=== PATIENT | male | born 1945 | race Caucasian/White ===

== ENCOUNTER 2017-04-24 13:41 | Outpatient (CLI) | payer MEDICARE, BC ==
[2017-04-24 16:10] LABS: Hematocrit 39.5 % (42.0-52.0); Mean Platelet Volume 8.2 fL (7.4-10.4); Red Blood Cell (RBC) Count 3.95 mill/uL (4.70-6.10); White Blood Cell (WBC) Count 9.4 thou/uL (4.8-10.8)
[2017-04-24 16:17] LABS: Prothrombin Time 13.6 SEC (12.0-14.7)
--- NOTE | 2017-04-24 16:24 | RAD ---
CHEST TWO VIEWS: History: Pre op. Comparison: 03-14-17 FINDINGS: Lungs are clear. No pneumothorax or effusion. Cardiac silhouette and mediastinal contours are within normal limits. IMPRESSION: No acute cardiopulmonary process. POS: [facility]
[2017-04-24 16:27] LABS: ALT (SGPT) 9 U/L (8-55); AST (SGOT) 17 U/L (5-34); Alkaline Phosphatase 71 U/L (40-150); Anion Gap 13 mmol/L (10-20); BUN (Urea Nitrogen) 16 mg/dL (8.4-25.7); Bilirubin, Total 0.4 mg/dL (0.2-1.2); Calc. Creatinine Clearance 0 mL/min (70-130); Calcium 9.4 mg/dL (7.8-10.44); Carbon Dioxide 27 mmol/L (23-31); Chloride 106 mmol/L (98-107); Estimated GFR-MDRD 46; Globulin 3.1 g/dL (2.4-3.5); Protein, Total 7.2 g/dL (5.8-8.1)
== END 2017-04-24 13:42 | disposition home or self-care (01) ==
LOC: LABBT 13:41
PROVIDERS: ATTEND Internal Medicine Cardiovascular Disease
DX: Z01.818 Encounter for other preprocedural examination (principal); R94.39 Abnormal result of other cardiovascular function study
CPT/HCPCS: 71020; 80053; 84443; 85027; 85610; 85730; 93005; 93010

== ENCOUNTER 2017-04-25 06:01 | Inpatient (IN) | payer MEDICARE, BC ==
[2017-04-25] MEDS ORDERED: Heparin 10,000 UNITS/1 ML VIAL ONE (06:36)
[2017-04-25] MEDS ORDERED: Nitroglycerin 0.4 MG TAB (25 Tab Bottle) ONE (06:38)
[2017-04-25] MEDS ORDERED: Midazolam HCl 2 mg/2 ml Vial ONE (07:11)
[2017-04-25] MEDS ORDERED: Fentanyl 100 MCG/2 ML VIAL ONE (07:11)
[2017-04-25] MEDS ORDERED: Nitroglycerin 0.4 MG TAB (25 Tab Bottle) SL PRN (07:27)
[2017-04-25] MEDS ORDERED: Acetaminophen/Codeine 30-300mg Tablet PO PRN ×2 (07:27)
[2017-04-25] MEDS ORDERED: Protamine Sulfate 50 MG/5 ML VIAL ONE (07:28)
[2017-04-25] MEDS ORDERED: Sodium Chloride 0.9% 1,000 ML IV SCH (07:30)
[2017-04-25] MEDS ORDERED: Sodium Chloride 0.9% 200 ML IV SCH (07:30)
--- NOTE | 2017-04-25 09:52 | CON ---
DATE OF CONSULTATION: 04/25/2017 REASON FOR CONSULTATION: Evaluation for coronary artery bypass surgery. PERTINENT HISTORY: Patient is a 72-year-old male with recent history of exertional shortness of breath and postprandial indigestion that likely represents postprandial angina. Patient has no prior documented history of OR. Cardiac PET was markedly abnormal prompting cardiac catheterization today, which demonstrated severe 3-vessel coronary artery disease with moderate reduction in left ventricular systolic function. Ejection fraction was 43%. LVEDP was 22. The patient was subsequently referred for coronary artery bypass surgery. PAST MEDICAL HISTORY: 1. Dyslipidemia. 2. Hypothyroidism. 3. Hypertension. 4. Renal insufficiency. 5. Carotid artery disease with abnormal carotid sono at the [facility] in [place], February this year (details unknown) PAST SURGICAL HISTORY: Sinus surgery only. ALLERGIES: PENICILLIN. SOCIAL HISTORY: Long-term cigarette and cigar smoker, having quit approximately 6 weeks ago. FAMILY HISTORY: Noncontributory for coronary artery disease. REVIEW OF SYSTEMS: No history of diabetes, TIA, CVA, or claudication. LABORATORY DATA AND X-RAY FINDINGS: Creatinine 1.50. Hemoglobin 13.5, platelet count 192,000. INR 1.0. EKG demonstrates a right bundle branch block. Chest x-ray, 6 weeks ago, demonstrated no acute process. CURRENT MEDICATIONS: Aspirin 81 mg daily, Synthroid 150 mcg daily, Toprol-XL 25 mg daily, and Crestor 20 mg daily. PHYSICAL EXAMINATION: VITAL SIGNS: Height 5 feet 10 inches, weight 180 pounds, blood pressure 136/78 , heart rate 58. GENERAL: Well-developed, well-nourished male in no acute distress. He is fully oriented. HEENT: Grossly unremarkable. NECK: Without JVD or adenopathy. LUNGS: Clear anteriorly. HEART: Sinus bradycardia without murmur or rub. ABDOMEN: Soft and nontender, without palpable mass. EXTREMITIES: Without edema. VASCULAR: Palpable radial, femoral, popliteal pulses bilaterally. He does have a left carotid bruit. Abdominal aorta is nonpalpable. NEUROLOGIC: No focal deficits. IMPRESSION: Poor prognostic stress test, severe 3-vessel coronary artery disease, and moderate reduction in left ventricular systolic function. RECOMMENDATIONS: Coronary artery bypass surgery to which the patient is in agreement following discussion with his referring international logistics analyst and myself. The indications, benefits, alternatives, and risks were explained in detail to the patient and his and sister. All questions were answered. Carotid ultrasound will be obtained immediately with any further recommendations based on the results of the study. [facility]
[2017-04-25] MEDS ORDERED: Iopamidol 370 76% 100 ML VIAL ONE (11:55)
--- NOTE | 2017-04-25 11:56 | ULT ---
CAROTID DUPLEX ULTRASOUND: HISTORY: Carotid stenosis. TECHNIQUE: Castaneda scale ultrasound with color flow and spectral Doppler imaging of the extracranial carotid arter y systems performed bilaterally. FINDINGS: There is plaque formation on both sides. There is occlusive plaque without flow in the right mid an d distal ICA. The peak systolic velocity in the left ICA measures 134 cm/s with an end-diastolic velocity of 34 cm /s and a systolic ratio of 1.53. Flow in both vertebral arteries remains antegrade. IMPRESSION: 1. Occlusion of the right internal carotid artery. 2. Moderate (50-69%) stenosis involving the left internal carotid artery. POS: [facility]
[2017-04-25] MEDS ORDERED: Communication Order-Pharmacy FS SCH (13:50)
[2017-04-25] MEDS: Nitroglycerin 2% Ointment 1 INCH/1 GM Packet TOP SCH ×2 (13:53→20:40)
[2017-04-25] MEDS: Aspirin 81 mg Enteric Coated Tablet PO SCH (13:54)
[2017-04-25] MEDS: Ubidecarenone 50 MG CAP PO SCH (13:54)
[2017-04-25 19:22] VITALS: BMI 25.0
[2017-04-25] MEDS ORDERED: FLU VACC TS2017-18 (>65YR) 0.5 ML SYRINGE IM ONE (21:00)
[2017-04-26] MEDS: Levothyroxine Sodium 150 MCG TAB PO SCH (05:48)
[2017-04-26] MEDS: Nitroglycerin 2% Ointment 1 INCH/1 GM Packet TOP SCH (05:52)
[2017-04-26] MEDS ORDERED: Fentanyl 100 MCG/2 ML VIAL ONE (06:33)
[2017-04-26] MEDS ORDERED: Dexmedetomidine 200 MCG/2 ML VIAL ONE (06:34)
[2017-04-26] MEDS ORDERED: Midazolam HCl 5 mg/5 ml Vial ONE (06:34)
[2017-04-26] MEDS ORDERED: Vecuronium 10 MG VIAL ONE ×2 (06:34→07:59)
[2017-04-26] MEDS ORDERED: Heparin 10,000 UNITS/1 ML VIAL 30,000 UNITS in Sodium Chloride 0.9% 1,000 ML FS SCH (06:45)
[2017-04-26] MEDS ORDERED: Clindamycin/D5W 900 mg/50 ml Premix Bag ONE (06:47)
[2017-04-26] MEDS ORDERED: Levofloxacin 500 mg/D5W 100 ml Premix Bag ONE (06:47)
[2017-04-26] MEDS ORDERED: Clindamycin/D5W 900 MG in Premix Bag 1 BAG IVPB SCH (07:30)
[2017-04-26] MEDS ORDERED: Lidocaine 2% PF 10 ML AMP (For Epidural Use) ONE (07:59)
[2017-04-26] MEDS ORDERED: PHENYLEPHRINE-NS 100 MCG/ML 10 ML SYRINGE ONE (07:59)
[2017-04-26] MEDS ORDERED: ePHEDrine/0.9% NaCl/PF SYRINGE 50 mg/10 ml ONE (07:59)
[2017-04-26] MEDS ORDERED: Insulin Regular 300 UNITS/3 ML VIAL ONE (09:38)
[2017-04-26] MEDS ORDERED: DOPamine 400 MG/D5W 250 ML 250 ML IVPB PRN (12:12)
[2017-04-26] MEDS ORDERED: Bisacodyl 5 MG TAB PO PRN (12:12)
[2017-04-26] MEDS ORDERED: Ondansetron HCl/PF 4 MG/2 ML Vial IVP PRN (12:12)
[2017-04-26] MEDS ORDERED: Mag-Al 1200 mg/1200 mg/30 ML UDCUP PO PRN (12:12)
[2017-04-26] MEDS ORDERED: Promethazine HCl 25 MG/ML VIAL IM PRN (12:12)
[2017-04-26] MEDS ORDERED: Norepinephrine 8 MG/0.9% NS 250 ML IVPB PRN (12:12)
[2017-04-26] MEDS ORDERED: Potassium Chloride 20 MEQ/100 ML PREMIX BAG IVPB PRN (12:12)
[2017-04-26] MEDS ORDERED: Bisacodyl 10 MG SUPP PR PRN (12:12)
[2017-04-26] MEDS ORDERED: Guaifenesin DM 100-10/5 ML UDCUP PO PRN (12:12)
[2017-04-26] MEDS ORDERED: Acetaminophen 325 MG TAB PO PRN (12:12)
[2017-04-26] MEDS ORDERED: Morphine Sulfate 2 MG/ML SYRINGE SLOW IVP PRN (12:12)
[2017-04-26] MEDS ORDERED: Post-Op Insulin Drip Protocol IVPB PRN (12:12)
[2017-04-26] MEDS ORDERED: HYDROcodone/Acetaminophen 5/325 mg Tablet PO PRN (12:12)
[2017-04-26] MEDS ORDERED: Phenylephrine 10 MG/NS 250 ML 250 ML IVPB PRN (12:12)
[2017-04-26] MEDS ORDERED: Nitroglycerin 50 MG/250 ML BOT 250 ML IVPB PRN (12:12)
[2017-04-26] MEDS ORDERED: DOPamine 400 MG/D5W 250 ML 250 ML ONE (12:18)
[2017-04-26 12:19] LABS: Oxyhemoglobin 96.3 % (94.0-97.0); Sodium 143 mmol/L (135-148)
[2017-04-26] MEDS ORDERED: Dextrose 50% Abboject 50 ML SYRINGE SLOW IVP PRN (12:21)
[2017-04-26] MEDS ORDERED: Insulin Regular 300 UNITS/3 ML VIAL SC PRN (12:21)
[2017-04-26] MEDS ORDERED: Dextrose 5% in Water 1,000 ML IV PRN (12:21)
[2017-04-26 12:22] LABS: #Basophils 0.1 thou/uL (0.0-0.2); #Eosinphils 0.1 thou/uL (0.0-0.7); #Lymphocytes 2.5 thou/uL (1.20-3.40); #Monocytes 1.2 thou/uL (0.11-0.59); #Neutrophils 15.2 thou/uL (1.40-6.50); %Basophils 0.5 % (0.0-1.0); %Eosinophils 0.8 % (0.0-10.0); %Lymphocytes 12.8 % (21.0-51.0); %Monocytes 6.5 % (0.0-10.0); Mean Platelet Volume 7.4 fL (7.4-10.4); Red Blood Cell (RBC) Count 3.61 mill/uL (4.70-6.10); White Blood Cell (WBC) Count 19.2 thou/uL (4.8-10.8)
[2017-04-26] MEDS: Sodium Chloride 0.9% 1,000 ML IV SCH (12:26)
[2017-04-26] MEDS: Ubidecarenone 50 MG CAP PO SCH (12:26)
[2017-04-26 12:29] LABS: PTT 33.1 SEC (22.9-36.1)
--- NOTE | 2017-04-26 12:30 | OP ---
DATE OF SURGERY: 04/26/2017 PREOPERATIVE DIAGNOSES: Poor prognostic stress test, severe three-vessel coronary artery disease, and moderate reduction in left ventricular systolic function. POSTOPERATIVE DIAGNOSES: Poor prognostic stress test, severe three-vessel coronary artery disease, and moderate reduction in left ventricular systolic function. SPONGE AND NEEDLE COUNTS: Correct. ANESTHESIA: General. OPERATIONS PERFORMED: Coronary artery bypass grafting x5 with left internal mammary artery to LAD, reversed greater saphenous vein to diagonal, reversed greater saphenous vein to ramus, reversed greater saphenous vein to OM, and reversed greater saphenous vein to PLMB. FINDINGS AT OPERATION: Moderate cardiomegaly and LVH. Patchy inferior scar. At the sites of distal anastomosis the LAD was 1.5mm, the diagonal 1-1.25 mm, the ramus 1.5 mm, the OM 1.5 mm, and the PLMB 1.25-1.5 mm. Left internal mammary artery was somewhat small, however, had excellent flow. Greater saphenous vein was good conduit. DESCRIPTION OF OPERATION: The patient was taken to the operating room. Following the induction of general endotracheal anesthesia, the patient was prepped and draped in usual sterile fashion. Sternotomy was performed. Left internal mammary artery was dissected in extrapleural fashion. Simultaneously, the left greater saphenous vein was harvested using the endoscopic technique. Heparin dose was given and following assurance of an adequate ACT, the patient was cannulated in standard fashion. Cardiopulmonary bypass was instituted. Locations of distal anastomosis were marked. Padded cross-clamp was applied with a single application and a single dose of cold blood cardioplegia given antegrade. The first vein graft was anastomosed in end-to-side fashion to the OM using a continuous 7-0 Prolene suture. In similar fashion, separate vein grafts were established to the ramus, diagonal, and PLMB. Left internal mammary artery was anastomosed in end-to-side fashion to the LAD using a continuous 7-0 Prolene suture. None of the distal anastomoses required additional sutures. Mammary artery pedicle was tacked to the epicardium using 6 -0 Prolene sutures. Systemic rewarming had been begun. With the head down and gentle suction on the aortic vent, the aortic cross-clamp was removed. Cardioversion was not required. Partial clamp was placed on the ascending aorta with a single application and 3 proximal vein graft anastomoses performed to punch holes using continuous 6-0 Prolene sutures. These were to the PLMB, ramus, and diagonal grafts. The PLMB graft did exit off to the right. The proximal OM graft anastomosis was t'd off the proximal aspect of the ramus graft using a continuous 6-0 Prolene suture. Partial clamp was removed and vein grafts deaired. Following full systemic rewarming, patient was weaned from cardiopulmonary bypass without difficulty and following heparin reversal with Protamine, the patient was decannulated. Amicar had been used in standard fashion through the case. No intraoperative blood products were required. Sunny drains were positioned within the pericardial well and left pleural cavity. Sternum was reapproximated with interrupted #5 stainless steel wires. Linea alba and fascia were closed with running #1 Vicryl sutures followed by closure of the subcutaneous tissues with a running 2-0 Vicryl suture. Skin was closed with a 3-0 Vicryl subcuticular stitch. Prior to closure, vancomycin paste had been applied to the sternal halves. Platelet-enriched and platelet- poor plasma had also been applied to the sternal wound. The patient was taken to the ICU. [facility]
[2017-04-26] MEDS: Aspirin 81 mg Enteric Coated Tablet PO SCH (12:33)
[2017-04-26 12:40] LABS: Mechanical Tidal Volume 500 ml; Mode SIMV; Pressure Support 10 cmH2O; Vent YES
[2017-04-26 12:44] LABS: Anion Gap 9 mmol/L (10-20); BUN (Urea Nitrogen) 12 mg/dL (8.4-25.7); Calc. Creatinine Clearance 75 mL/min (70-130); Calcium 8.3 mg/dL (7.8-10.44); Carbon Dioxide 23 mmol/L (23-31); Chloride 113 mmol/L (98-107); Estimated GFR-MDRD 71
[2017-04-26] MEDS: Fentanyl 100 MCG/2 ML VIAL SLOW IVP PRN ×4 (13:13→20:11)
[2017-04-26] MEDS: Clindamycin/D5W 900 MG in Premix Bag 1 BAG IVPB SCH ×2 (13:15→20:11)
--- NOTE | 2017-04-26 13:21 | RAD ---
PORTABLE CHEST: Comparison: 04-24-17 History: Post op open heart surgery. FINDINGS: Heart size is borderline. There is post op sternotomy changes now present. Endotracheal and NG tubes are in satisfactory position. Right subclavian line is present. Catheter tip overlying the distal s uperior vena cava. Atelectatic changes are seen in the left base. Left sided chest tubes are present. IMPRESSION: Post op open heart surgery changes as noted above. POS: [facility]
[2017-04-26 16:08] LABS: Sodium 142 mmol/L (135-148)
[2017-04-26 16:27] LABS: Mode CPAP; Pressure Support 10 cmH2O; Vent YES
[2017-04-26] MEDS: HYDROcodone/Acetaminophen 5/325 mg Tablet PO PRN ×2 (16:55→21:46)
[2017-04-26 18:10] LABS: Hematocrit 33.6 % (42.0-52.0)
[2017-04-26] MEDS: Famotidine/PF 20 mg/2ml Vial SLOW IVP SCH (20:11)
[2017-04-27] MEDS: Clindamycin/D5W 900 MG in Premix Bag 1 BAG IVPB SCH ×2 (00:11→06:02)
[2017-04-27] MEDS: HYDROcodone/Acetaminophen 5/325 mg Tablet PO PRN ×3 (02:05→18:53)
[2017-04-27] MEDS: Fentanyl 100 MCG/2 ML VIAL SLOW IVP PRN (03:14)
[2017-04-27 04:26] LABS: #Lymphocytes 1.5 thou/uL (1.20-3.40); #Monocytes 1.1 thou/uL (0.11-0.59); #Neutrophils 10.8 thou/uL (1.40-6.50); %Eosinophils 0.1 % (0.0-10.0); %Monocytes 7.9 % (0.0-10.0); Hematocrit 29.8 % (42.0-52.0); Mean Platelet Volume 8.4 fL (7.4-10.4); Red Blood Cell (RBC) Count 2.98 mill/uL (4.70-6.10); White Blood Cell (WBC) Count 13.3 thou/uL (4.8-10.8)
[2017-04-27 04:51] LABS: Anion Gap 12 mmol/L (10-20); BUN (Urea Nitrogen) 16 mg/dL (8.4-25.7); Calc. Creatinine Clearance 62 mL/min (70-130); Calcium 8.6 mg/dL (7.8-10.44); Carbon Dioxide 24 mmol/L (23-31); Chloride 110 mmol/L (98-107); Estimated GFR-MDRD 57
[2017-04-27] MEDS: Levothyroxine Sodium 150 MCG TAB PO SCH (05:05)
--- NOTE | 2017-04-27 08:54 | RAD ---
AP VIEW CHEST: INDICATIONS: Status post open heart surgery. COMPARISON: Prior exam dated 04/26/2017. IMPRESSION: Since the comparison examination, the patient has been extubated with removal of the gastric cathete r. Mediastinal drain, thoracostomy tube, and right subclavian central venous catheter is similar. No pneumothorax is evident. The cardiac silhouette is accentuated by the exam technique and low jacob g volumes. No definite confluent air space opacity, pleural effusion, or pneumothorax is evident. IMPRESSION: 1. Interval extubation. Other tubes and lines are stable. 2. No air space consolidation, pleural effusion, or pneumothorax is evident. POS: [facility]
[2017-04-27] MEDS ORDERED: Aspirin 325 MG TAB PO SCH (09:00)
[2017-04-27] MEDS: Famotidine/PF 20 mg/2ml Vial SLOW IVP SCH (09:16)
[2017-04-27] MEDS: Ubidecarenone 50 MG CAP PO SCH (09:17)
[2017-04-27] MEDS ORDERED: Bisacodyl 10 MG SUPP PR PRN (12:20)
[2017-04-27] MEDS ORDERED: Zolpidem Tartrate 5 MG TAB PO PRN (12:20)
[2017-04-27] MEDS ORDERED: Fentanyl 100 MCG/2 ML VIAL SLOW IVP PRN ×2 (12:20)
[2017-04-27] MEDS ORDERED: Bisacodyl 5 MG TAB PO PRN (12:20)
[2017-04-27] MEDS ORDERED: Promethazine HCl 25 MG/ML VIAL IM PRN (12:20)
[2017-04-27] MEDS ORDERED: Ondansetron HCl/PF 4 MG/2 ML Vial IVP PRN (12:20)
[2017-04-27] MEDS ORDERED: Mineral Oil ENEMA PR PRN (12:20)
[2017-04-27] MEDS ORDERED: Milk Of Magnesia 30 ML UDCUP PO PRN (12:20)
[2017-04-27] MEDS ORDERED: Nitroglycerin 0.4 MG TAB 1 EACH SL PRN (12:20)
[2017-04-27] MEDS ORDERED: Mag-Al 1200 mg/1200 mg/30 ML UDCUP PO PRN (12:20)
[2017-04-27] MEDS ORDERED: Acetaminophen 325 MG TAB PO PRN (12:20)
[2017-04-27] MEDS ORDERED: Artificial Tears 18 DROP/0.9 ML EA EYE PRN (12:20)
[2017-04-27] MEDS ORDERED: Guaifenesin DM 100-10/5 ML UDCUP PO PRN (12:20)
[2017-04-27] MEDS ORDERED: diphenhydrAMINE HCl 25 MG CAP PO PRN (12:20)
--- NOTE | 2017-04-27 12:38 | CON ---
DATE OF SERVICE: 04/27/2017 SERVICE: Pulmonary Medicine. REASON FOR CONSULTATION: ICU patient. HISTORY OF PRESENT ILLNESS: The patient is a 72-year-old white male with past medical history signi ficant for severe coronary artery disease. He had an outpatient catheterization that was performed, prompting admission to the hospital and an urgent coronary artery bypass graft. He is postop day # 1. So far, his transition has been fairly uncomplicated. He extubated well and is currently on darell m air. He continues to have discomfort; whenever, he takes a deep breath which preventing him from taking a full breath. When he got up to a chair this morning, he had marginal blood pressures. He had a little dizziness associated with this and was brought back to bed. He currently denies any fe vers, chills, nausea or vomiting. He does not have any complaints of difficulty with breathing. PAST MEDICAL HISTORY: 1. Coronary artery disease. 2. Hypertension. 3. Dyslipidemia. 4. Chronic kidney disease. 5. Hypothyroidism. 6. Carotid arterial disease. PAST SURGICAL HISTORY: 1. Sinus surgery. 2. Coronary artery bypass graft x5 vessels. ALLERGIES: PENICILLIN. MEDICATIONS: Listed inpatient medications was reviewed. No specific updates were made at this time . SOCIAL HISTORY: He has a long history of smoking cigarettes. He quit roughly 6 weeks ago. He does not use any significant alcohol and denies illicit drugs. Otherwise, he has no exposure to chemica ls, dust asbestosis or tuberculosis. FAMILY HISTORY: Noncontributory. REVIEW OF SYSTEMS: General, head, ears, eyes, nose, throat, cardiovascular, respiratory, GI, , mu sculoskeletal, neurologic and skin is negative except as mentioned in the HPI. PHYSICAL EXAMINATION: VITAL SIGNS: Afebrile, pulse 86, blood pressure 100/58, respirations 22, saturation 93% on room air . The patient is awake, alert, in no apparent distress. LUNGS: Decent air entry with no prolonged expiratory phase, wheezing, rhonchi or crackles. HEART: Normal rate, regular. ABDOMEN: Soft, nontender, nondistended, bowel sounds positive. MUSCULOSKELETAL: No cyanosis or clubbing. There is trace pitting in the bilateral lower extremitie s. GENITOURINARY: Ferreira catheter in place. LABORATORY DATA: WBC 13.3, hemoglobin 10.9, platelets 130,000. INR 1.4. PH 7.35, pCO2 of 39, pO2 86. Basic metabolic profile is essentially unremarkable except for chloride of 110. TSH is 5.5. L iver function studies are all unremarkable. Urinalysis was previously unremarkable. IMAGING: Chest x-ray demonstrates no acute cardiopulmonary abnormality is identified. Thoracostomy drain cannot be visualized on this portable film. The heart size is within the normal limits. . S ternotomy wires are in good position. There is a right-sided subclavian central venous catheter in the right atrium. ASSESSMENT AND PLAN: 1. Coronary artery disease. 2. Coronary artery bypass graft x5 vessels, postoperative day #1. 3. Chronic systolic heart failure. PLAN: We will continue routine postop supportive care. The patient will remain in the ICU for at l east the next 24 hours. Pulmonary Critical Care will continue to follow along for the time being. We will watch his volume status closely.
[2017-04-27] MEDS: traMADol HCl 50 MG TAB PO PRN (15:17)
[2017-04-27] MEDS: Sodium Chloride 0.9% 1,000 ML IV SCH (18:06)
[2017-04-27] MEDS: Carvedilol 3.125 MG TAB PO SCH (21:00)
[2017-04-27] MEDS: Famotidine 20 MG TAB PO SCH (21:00)
[2017-04-28] MEDS: HYDROcodone/Acetaminophen 5/325 mg Tablet PO PRN ×2 (02:05→17:45)
[2017-04-28] MEDS: Levothyroxine Sodium 150 MCG TAB PO SCH (05:59)
[2017-04-28 06:41] LABS: Anion Gap 8 mmol/L (10-20); BUN (Urea Nitrogen) 15 mg/dL (8.4-25.7); Calc. Creatinine Clearance 60 mL/min (70-130); Calcium 8.8 mg/dL (7.8-10.44); Carbon Dioxide 27 mmol/L (23-31); Chloride 105 mmol/L (98-107); Estimated GFR-MDRD 63
[2017-04-28] MEDS: Potassium Chloride 10 MEQ TAB PO SCH (08:45)
[2017-04-28] MEDS: Ubidecarenone 50 MG CAP PO SCH (09:04)
[2017-04-28] MEDS: Famotidine 20 MG TAB PO SCH ×2 (09:04→20:50)
[2017-04-28] MEDS: Carvedilol 3.125 MG TAB PO SCH ×2 (09:04→20:43)
[2017-04-28] MEDS: Aspirin 325 mg Enteric Coated Tablet PO SCH (09:05)
[2017-04-28] MEDS: Furosemide 40 MG TAB PO SCH (09:07)
--- NOTE | 2017-04-28 18:07 | PRG ---
DATE OF SERVICE: 04/28/2017 SERVICE: Pulmonary Medicine. INTERVAL HISTORY: The patient is doing okay from a respiratory standpoint. That being said, johnny guallpa, he had little hypoxemia prompting him to be put on oxygen. He has had a little bit of heart ra te issue. That being said, this has been present through the day. He denies having any discomfort or difficulty breathing. That being said, he has got this internal restlessness where he continues to move inside of the bed. He looks like he has got mild distress though he cannot tell me what it is. Chest tube was removed. He has no specific complaints of nausea, vomiting. He has been able t o eat some food. PHYSICAL EXAMINATION: VITAL SIGNS: Afebrile, pulse 98, blood pressure 92/57, respirations 16, saturation 93% on 3 liters nasal cannula. GENERAL: Patient is awake, alert, in no apparent distress. LUNGS: Decreased air entry. There are minimal crackles present in bibasilar region and I appreciat e a slightly prolonged expiratory phase. HEART: Tachycardic, regular. ABDOMEN: Soft, nontender, nondistended. Bowel sounds positive. MUSCULOSKELETAL: No cyanosis or clubbing. There is trace 1+ pitting in the bilateral lower extremi ties. GENITOURINARY: No Ferreira. NEUROLOGIC: Grossly nonfocal. LABORATORY DATA: Basic metabolic profile is essentially unremarkable with a creatinine that is tren ding downward to 1.14. ASSESSMENT: 1. Coronary artery disease. 2. Coronary artery bypass graft x5 vessels, postop day 2. 3. Chronic systolic heart failure. PLAN: We will continue routine postoperative care. Mobilization efforts will be continued as we ge ntly diuresed him through time. Pulmonary will continue to follow up for the time being.
[2017-04-28] MEDS: traMADol HCl 50 MG TAB PO PRN (20:50)
[2017-04-29 02:52] VITALS: TEMP 98.3
[2017-04-29] MEDS: HYDROcodone/Acetaminophen 5/325 mg Tablet PO PRN ×2 (02:52→11:18)
[2017-04-29] MEDS: Levothyroxine Sodium 150 MCG TAB PO SCH (06:07)
[2017-04-29] MEDS: traMADol HCl 50 MG TAB PO PRN (06:12)
[2017-04-29] MEDS: Ubidecarenone 50 MG CAP PO SCH (08:52)
[2017-04-29] MEDS: Furosemide 40 MG TAB PO SCH (08:52)
[2017-04-29] MEDS: Potassium Chloride 10 MEQ TAB PO SCH (08:52)
[2017-04-29] MEDS: Carvedilol 3.125 MG TAB PO SCH (08:53)
[2017-04-29] MEDS: Aspirin 325 mg Enteric Coated Tablet PO SCH (08:53)
[2017-04-29] MEDS: Famotidine 20 MG TAB PO SCH (08:53)
[2017-04-29 13:16] VITALS: BP 119/73
--- NOTE | 2017-04-29 19:49 | DIS ---
DATE OF ADMISSION: 04/24/2017 DATE OF DISCHARGE: 04/28/2017 DIAGNOSES: 1. Coronary artery disease. 2. Hypothyroidism. 3. Dyslipidemia. 4. Hypertension. 5. Renal insufficiency. 6. Carotid disease. 7. Tobacco abuse. PROCEDURES: 1. Cardiac catheterization. 2. Coronary artery bypass grafting x5 - left internal mammary artery LAD, reversed saphenous vein t o diagonal, ramus, OM posterolateral. DESCRIPTION OF HOSPITAL STAY: Mr. Rincon is a 72-year-old gentleman, who was admitted and underwent cardiac catheterization by Dr. Romo. He was found to have severe 3-vessel disease. He was take n to the operating room on 04/25/2017, and underwent bypass as above. Postoperatively, he has done well. He has had no rhythm disturbances. He was found in the morning of 04/29/2017, chewing tobacc o in his room and has subsequently been discharged to home. At the time of discharge, he is ambulat ory, tolerating regular diet, and having good bowel and bladder function. The incision is clean and dry without evidence of infection. DISCHARGE MEDICATIONS: Include; 1. Aspirin 325 mg q. day. 2. Toprol-XL 25 mg q. day. 3. Crestor 20 mg q. day. 4. [place] 5/325 of 1-2 q.6 hours p.r.n. pain. FOLLOWUP: Follow up is with Dr. Gonzales in [address] Romo in a month.
== END 2017-04-29 13:51 | disposition home or self-care (01) | DRG 234 ==
LOC: CCL 06:01 → 2NO 07:28 → CCU 04-26 08:22 → 2NO 04-27 14:45
PROVIDERS: ADMIT Internal Medicine Cardiovascular Disease; ATTEND Internal Medicine Cardiovascular Disease
PROC: 4A023N7 Measurement of Cardiac Sampling and Pressure, Left Heart, Percutaneous Approach (ICD-10-PCS; 2017-04-25)
PROC: B2111ZZ Fluoroscopy of Multiple Coronary Arteries using Low Osmolar Contrast (ICD-10-PCS; 2017-04-25)
PROC: B2151ZZ Fluoroscopy of Left Heart using Low Osmolar Contrast (ICD-10-PCS; 2017-04-25)
PROC: 02100Z9 Bypass Coronary Artery, One Artery from Left Internal Mammary, Open Approach (ICD-10-PCS; principal; 2017-04-26)
PROC: 021309W Bypass Coronary Artery, Four or More Arteries from Aorta with Autologous Venous Tissue, Open Approach (ICD-10-PCS; 2017-04-26)
PROC: 06BQ4ZZ Excision of Left Saphenous Vein, Percutaneous Endoscopic Approach (ICD-10-PCS; 2017-04-26)
PROC: 5A1221Z Performance of Cardiac Output, Continuous (ICD-10-PCS; 2017-04-26)
PROC: B24BZZ4 Ultrasonography of Heart with Aorta, Transesophageal (ICD-10-PCS; 2017-04-26)
DX: I25.10 Atherosclerotic heart disease of native coronary artery without angina pectoris (principal); I11.0 Hypertensive heart disease with heart failure; I50.22 Chronic systolic (congestive) heart failure; E03.9 Hypothyroidism, unspecified; R94.39 Abnormal result of other cardiovascular function study; E78.5 Hyperlipidemia, unspecified; F17.210 Nicotine dependence, cigarettes, uncomplicated; N28.9 Disorder of kidney and ureter, unspecified
CPT/HCPCS: 36415; 36416; 36430; 71010; 71020; 80048; 80053; 80061; 82805; 84443; 85025; 85027; 85347; 85610; 85730; 86850; 86900; 86901; 93005; 93010; 93458; 93798; 93880; 94002; 94150; 99152; A4216; C1769; J1265; J1642; J1644; J1815; J1956; J2001; J2250; J2720; J3010; J3480; J3490; J7050; P9045; S0028

== ENCOUNTER 2017-10-30 10:52 | Outpatient (CLI) | payer OTHER | END 2017-10-30 10:53 | disposition home or self-care (01) | LOC: ULT 10:52 | PROVIDERS: ATTEND Orthopaedic Surgery | DX: I25.10 Atherosclerotic heart disease of native coronary artery without angina pectoris (principal); I08.3 Combined rheumatic disorders of mitral, aortic and tricuspid valves | CPT/HCPCS: 93306 ==

== ENCOUNTER 2017-11-10 12:13 | Emergency (ER) | payer MEDICARE, OTHER ==
[2017-11-10 13:07] LABS: #Basophils 0.1 thou/uL (0.0-0.2); #Eosinphils 0.2 thou/uL (0.0-0.7); #Lymphocytes 3.4 thou/uL (1.20-3.40); #Monocytes 0.8 thou/uL (0.11-0.59); #Neutrophils 6.2 thou/uL (1.40-6.50); %Basophils 0.6 % (0.0-1.0); %Eosinophils 2.2 % (0.0-10.0); %Lymphocytes 31.9 % (21.0-51.0); %Monocytes 7.8 % (0.0-10.0); %Neutrophils 57.4 % (42.0-75.0); Hemoglobin 13.9 g/dL (14.0-18.0); Mean Corpuscular HGB CONC 34.9 g/dL (32.0-36.0); Mean Corpuscular Hemoglobin 31.7 pg (27.0-31.0); Mean Corpuscular Volume 90.8 fl (80.0-94.0); Mean Platelet Volume 7.5 fL (7.4-10.4); Platelet Count 195 thou/uL (130-400); RBC Distribution Width 14.7 % (11.5-14.5); Red Blood Cell (RBC) Count 4.38 mill/uL (4.70-6.10); White Blood Cell (WBC) Count 10.7 thou/uL (4.8-10.8)
[2017-11-10 13:30] LABS: ALT (SGPT) 10 U/L (8-55); AST (SGOT) 16 U/L (5-34); Albumin 4.2 g/dL (3.4-4.8); Alkaline Phosphatase 93 U/L (40-150); Anion Gap 14 mmol/L (10-20); BUN (Urea Nitrogen) 15 mg/dL (8.4-25.7); Bilirubin, Total 0.5 mg/dL (0.2-1.2); CK (CPK) 121 U/L (30-200); Calc. Creatinine Clearance 0 mL/min (70-130); Calcium 9.3 mg/dL (7.8-10.44); Carbon Dioxide 20 mmol/L (23-31); Chloride 107 mmol/L (98-107); Estimated GFR-MDRD 58; Globulin 2.7 g/dL (2.4-3.5); Glucose 93 mg/dL (83-110); Lipase 66 U/L (8-78); Potassium 4.2 mmol/L (3.5-5.1); Protein, Total 6.9 g/dL (5.8-8.1); Sodium 137 mmol/L (136-145)
[2017-11-10 13:35] LABS: CKMB 3.2 ng/mL (0-6.6); Troponin I Less than 0.010 ng/mL (< 0.028)
[2017-11-10 14:27] LABS: Bilirubin Negative (Negative); Blood, Urine Negative (Negative); Clarity CLEAR (Clear); Glucose, Urine (Dipstick) Negative (Negative); Leukocyte Negative (Negative); Nitrite Negative (Negative); Protein, Urine (Dipstick) Negative (Neg-Trace); Specific Gravity, Urine 1.011 (1.002-1.036); Urobilinogen 0.2 mg/dL (0.2-1.0)
--- NOTE | 2017-11-10 14:43 | RAD ---
PORTABLE CHEST: DATE: 11/10/17. PROVIDED CLINICAL HISTORY: Syncope. FINDINGS: Comparison 04/27/17. Cardiac and mediastinal silhouette is within normal limits. Median sternotomy changes are seen. No focal consolidation, pleural fluid, or pneumothorax apparent. IMPRESSION: No evidence for an acute cardiopulmonary process. POS: [facility]
--- NOTE | 2017-11-10 14:50 | CT ---
CT BRAIN: DATE: 11/10/17. PROVIDED CLINICAL HISTORY: Syncope. FINDINGS: No comparisons. Prominence of the ventricular system is noted presumably on the basis of central atr ophy. Prominent chronic microvascular ischemic changes are seen. There is no evidence for intracran ial hemorrhage or mass effect. The extracranial soft tissues and osseous structures demonstrate no a cute findings. IMPRESSION: No evidence for intracranial hemorrhage or mass effect. Prominent periventricular white matter chron ic microvascular change. POS: [facility]
--- NOTE | 2017-11-10 14:53 | CT ---
CT CERVICAL SPINE: DATE: 11/10/17. PROVIDED CLINICAL HISTORY: Neck pain status post injury. FINDINGS: No evidence for a fracture or traumatic subluxation. Midcervical degenerative disk changes are seen. No prevertebral soft tissue swelling apparent. The visualized lung apices appear clear. IMPRESSION: No evidence for fracture or traumatic subluxation. POS: [facility]
== END 2017-11-10 16:00 | disposition home or self-care (01) ==
LOC: ERS 12:13
DX: S09.90XA Unspecified injury of head, initial encounter (principal); R55 Syncope and collapse; I25.10 Atherosclerotic heart disease of native coronary artery without angina pectoris; E78.5 Hyperlipidemia, unspecified; E03.9 Hypothyroidism, unspecified; F43.10 Post-traumatic stress disorder, unspecified; F17.220 Nicotine dependence, chewing tobacco, uncomplicated; W07.XXXA Fall from chair, initial encounter
CPT/HCPCS: 36415; 70450; 71045; 72125; 80053; 81003; 82553; 83690; 83880; 84484; 85025; 87040; 93005; 96360; 99406

== ENCOUNTER 2017-12-17 08:09 | Outpatient (CLI) | payer MEDICARE, BC ==
[2017-12-17] MEDS ORDERED: ISOVUE-370 76%-LOCM 1 ML ONE (14:50)
== END 2017-12-17 08:10 | disposition home or self-care (01) ==
LOC: BICCT 08:09
PROVIDERS: ATTEND Thoracic Surgery (Cardiothoracic Vascular Surgery)
DX: I65.23 Occlusion and stenosis of bilateral carotid arteries (principal)
CPT/HCPCS: 70498; 82565

== ENCOUNTER 2019-01-24 09:40 | Outpatient (CLI) | payer MEDICARE, BC ==
--- NOTE | 2019-01-24 10:40 | RAD ---
2 VIEWS CHEST: Date: 01/24/19 COMPARISON: 11/10/17. FINDINGS: 2 views of the chest show a normal sized cardiomediastinal silhouette. The patient is status post meka rnotomy. There is no evidence of consolidation, mass, or pleural effusion. The bones are unremarkable . IMPRESSION: No evidence of acute cardiopulmonary disease. POS: [facility]
== END 2019-01-24 09:41 | disposition home or self-care (01) ==
LOC: RAD 09:40
PROVIDERS: ATTEND Internal Medicine
DX: R06.00 Dyspnea, unspecified (principal)
CPT/HCPCS: 71046

== ENCOUNTER 2019-03-26 13:14 | Outpatient (CLI) | payer MEDICARE, BC | END 2019-03-26 13:15 | disposition home or self-care (01) | LOC: CP 13:14 | PROVIDERS: ATTEND Internal Medicine | DX: R06.09 Other forms of dyspnea (principal) | CPT/HCPCS: 94010; 94729 ==

== ENCOUNTER 2020-08-02 11:00 | Emergency (ER) | payer OTHER ==
[2020-08-02] MEDS ORDERED: Ketorolac Tromethamine 30 MG/ML VIAL ONE (11:41)
[2020-08-02] MEDS ORDERED: HYDROcodone/Acetaminophen 10/325 mg Tablet ONE (11:41)
[2020-08-02 11:45] LABS: #Eosinphils 0.2 thou/uL (0.0-0.7); #Monocytes 0.6 thou/uL (0.11-0.59); #Neutrophils 6.2 thou/uL (1.40-6.50); %Basophils 0.1 % (0.0-1.0); %Eosinophils 1.7 % (0.0-10.0); %Lymphocytes 22.3 % (21.0-51.0); %Monocytes 6.7 % (0.0-10.0); %Neutrophils 69.2 % (42.0-75.0); Hemoglobin 14.3 g/dL (14.0-18.0); Mean Corpuscular HGB CONC 33.2 g/dL (32.0-36.0); Mean Corpuscular Hemoglobin 32.7 pg (27.0-31.0); Mean Corpuscular Volume 98.6 fL (78.0-98.0); Mean Platelet Volume 8.1 fL (7.4-10.4); Platelet Count 203 thou/uL (130-400); RBC Distribution Width 12.8 % (11.5-14.5); Red Blood Cell (RBC) Count 4.38 mill/uL (4.70-6.10)
[2020-08-02 12:07] LABS: ALT (SGPT) 9 U/L (8-55); AST (SGOT) 13 U/L (5-34); Albumin 4.1 g/dL (3.4-4.8); Alkaline Phosphatase 78 U/L (40-110); Anion Gap 12 mmol/L (10-20); BUN (Urea Nitrogen) 18 mg/dL (8.4-25.7); Bilirubin, Total 0.4 mg/dL (0.2-1.2); Calc. Creatinine Clearance 0 mL/min (70-130); Carbon Dioxide 25 mmol/L (23-31); Chloride 105 mmol/L (98-107); Globulin 2.8 g/dL (2.4-3.5); Glucose 141 mg/dL (83-110); Lipase 43 U/L (8-78); Potassium 4.6 mmol/L (3.5-5.1); Protein, Total 6.9 g/dL (5.8-8.1); Sodium 137 mmol/L (136-145)
[2020-08-02 12:13] LABS: Bacteria/HPF None Seen HPF (None Seen); Bilirubin Negative (Negative); Blood, Urine Negative (Negative); Clarity Clear (Clear); Glucose, Urine (Dipstick) Normal (Negative); Ketone, Urine Negative (Negative); Leukocyte 75 Leu/uL (Negative); Nitrite Negative (Negative); Protein, Urine (Dipstick) Negative (Neg-Trace); RBC/HPF 0-3 HPF (0-3); Specific Gravity, Urine 1.017 (1.002-1.036); Squamous Epithelial 0-3 HPF (0-3); Urobilinogen Normal mg/dL (Less than 2)
[2020-08-02] MEDS ORDERED: Ciprofloxacin 500 MG TAB ONE (13:04)
== END 2020-08-02 13:08 | disposition home or self-care (01) ==
LOC: ERS 11:00
DX: N13.2 Hydronephrosis with renal and ureteral calculous obstruction (principal); N39.0 Urinary tract infection, site not specified; E78.00 Pure hypercholesterolemia, unspecified; E03.9 Hypothyroidism, unspecified; I65.29 Occlusion and stenosis of unspecified carotid artery; I25.10 Atherosclerotic heart disease of native coronary artery without angina pectoris; E78.5 Hyperlipidemia, unspecified; I12.9 Hypertensive chronic kidney disease with stage 1 through stage 4 chronic kidney disease, or unspecified chronic kidney disease; N18.9 Chronic kidney disease, unspecified; F17.210 Nicotine dependence, cigarettes, uncomplicated; Z79.899 Other long term (current) drug therapy
CPT/HCPCS: 36415; 80053; 81003; 81015; 83690; 85025; 87086; 96372; 99284; J1885

== ENCOUNTER 2020-09-07 10:23 | Day surgery (SDC) | payer OTHER ==
[2020-09-06 11:01] VITALS: BMI 28.5
[2020-09-07] MEDS ORDERED: ePHEDrine 50 MG/ML VIAL ONE (10:24)
[2020-09-07] MEDS ORDERED: PROPOFOL 200 MG/20 ML VIAL ONE (10:24)
[2020-09-07] MEDS ORDERED: Dexamethasone 20 MG/5 ML VIAL ONE (10:24)
[2020-09-07] MEDS ORDERED: Ondansetron PF 4 MG/2 ML Vial ONE (10:24)
[2020-09-07] MEDS ORDERED: Lidocaine 1% PF 5 ML VIAL ONE (10:24)
[2020-09-07] MEDS ORDERED: Levofloxacin 500 mg/D5W 100 ml Premix Bag ONE (11:49)
[2020-09-07] MEDS ORDERED: Phenylephrine 10 MG/ML VIAL ONE (13:02)
[2020-09-07] MEDS ORDERED: Fentanyl 100 MCG/2 ML VIAL ONE ×3 (13:02→15:46)
[2020-09-07] MEDS ORDERED: Iothalamate Meglumine 60% 50 ML VIAL FS ONE (13:34)
[2020-09-07] MEDS ORDERED: Ketorolac Tromethamine 30 MG/ML VIAL ONE (15:07)
[2020-09-07] MEDS ORDERED: Phenazopyridine HCl 100 MG TAB ONE (15:07)
[2020-09-07] MEDS ORDERED: Oxybutynin 5 MG TAB ONE (15:08)
--- NOTE | 2020-09-07 15:41 | RAD ---
Retrograde pyelogram: 09/07/2020 HISTORY: Cystoscopy, left stent placement FINDINGS: Provided imaging demonstrates partially opacified right ureter and right renal collecting s ystem, grossly unremarkable. Provided imaging demonstrates a markedly dilated intrarenal collecting system on the left with irregularity and dilation of the proximal left ureter which could be related to proximal left ureteral tumor, stone disease, and or hemorrhage. Later imaging demonstrates placement of a left double-J ureteral stent, proximal and distal curls obs cured by contrast media. IMPRESSION: Hydronephrotic left kidney status post double-J ureteral stent placement. Irregularity of the proximal left ureter could be on the basis of stone disease, tumor, blood products, or a combination of the above.
--- NOTE | 2020-09-08 08:37 | OP ---
DATE OF PROCEDURE: 09/07/2020 PREOPERATIVE DIAGNOSIS: Left hydronephrosis. POSTOPERATIVE DIAGNOSES: Left hydronephrosis, left ureteral tumor. PROCEDURES PERFORMED: Cystoscopy with bilateral retrograde pyelogram, transurethral resection of distal ureteral tumor, left ureteroscopy, 6 x 28 double-J ureteral stent placement. ANESTHESIA: General. COMPLICATIONS: None. ESTIMATED BLOOD LOSS: Minimal. SPECIMEN: Left ureteral tumor. DESCRIPTION OF PROCEDURE: After informed consent, the patient was taken to the operating room, transferred to the table under his own power. Anesthesia was established. A time-out was performed, showing the correct patient, site, and procedure. Preoperative antibiotics were administered. He was prepped and draped in the lithotomy position. I began by performing a digital rectal exam noting a 30 g prostate, smooth and symmetric. No abnormalities. I then changed gloves and scrubbed for the case. The urethra was calibrated to 30-Syriac with Lea sounds and then the 21-Syriac cystoscope was advanced through the urethra noting a normal course and caliber of the urethra into the prostate noting a high bladder neck with mildly obstructing lateral lobes. The bladder was entered and systematically examined noting mild trabeculation with no bladder mucosa tumors. The right ureter was normal in appearance. The left ureter, however, had a mounded appearance with obvious tumor protruding from the ureter. A retrograde pyelogram was performed on the right side using a Pollack catheter showing good filling of the right ureter with no filling defects or abnormalities. I was unable to access the left ureter with a Pollack catheter or a wire. We then switched to the resectoscope and I removed the tumor from the distal left ureter and was able to trim the ureter back. However, the ureteral lumen was still occupied with tumor. At this point, I was unable to continue resecting and so considered lasering the tumor. A wire was passed into the ureter at this point, which I was able to negotiate up into the renal pelvis. A Pollack catheter was passed over this and a retrograde pyelogram performed showing filling defects throughout the ureter and severe hydronephrosis. I then switched to the semi-rigid ureteroscope and was able to guide this into the left ureter. The entirety of the ureter up to the renal pelvis was involved with pedunculated mobile tumors. The renal pelvis itself also had several low profile tumors. At this point, it was clear that it was not possible to laser these tumors and so the scope was withdrawn leaving a wire in place. A 6 x 28 double-J ureteral stent was passed over the wire with a curl in the kidney and curl in the bladder under fluoroscopic guidance. The bladder was drained. He was awoken from anesthesia, transferred back to his hospital bed and taken to PACU in stable condition, where he will be discharged home upon recovery. Job ID: [id number]
== END 2020-09-07 17:45 | disposition home or self-care (01) ==
LOC: SDC 10:23
PROVIDERS: ATTEND Urology
PROC: 0T9780Z Drainage of Left Ureter with Drainage Device, Via Natural or Artificial Opening Endoscopic (ICD-10-PCS; principal; 2020-09-07)
DX: N13.30 Unspecified hydronephrosis (principal); C66.2 Malignant neoplasm of left ureter; N40.1 Benign prostatic hyperplasia with lower urinary tract symptoms; F17.200 Nicotine dependence, unspecified, uncomplicated; E07.9 Disorder of thyroid, unspecified; Z79.82 Long term (current) use of aspirin; Z79.899 Other long term (current) drug therapy; Z88.0 Allergy status to penicillin; Z95.1 Presence of aortocoronary bypass graft
CPT/HCPCS: 74420; 88305; J1100; J1885; J1956; J2370; J2405; J2704; J3010; J3490

== ENCOUNTER 2020-09-30 17:00 | Inpatient (IN) | payer OTHER ==
[2020-10-05] MEDS ORDERED: Fentanyl 100 MCG/2 ML VIAL ONE ×4 (09:28→14:56)
[2020-10-05] MEDS ORDERED: Midazolam HCl 2 mg/2 ml Vial ONE (09:28)
[2020-10-05] MEDS ORDERED: Bupivacaine PF 0.5% 30 ML VIAL ONE (11:35)
[2020-10-05] MEDS ORDERED: Lidocaine 1% w/Epinephrine 1:100K 20 ML VIAL ONE (11:35)
[2020-10-05] MEDS ORDERED: Fentanyl 250 MCG/5 ML VIAL ONE (11:42)
[2020-10-05] MEDS ORDERED: Phenylephrine 10 MG/ML VIAL ONE (11:43)
[2020-10-05] MEDS ORDERED: Dexamethasone 20 MG/5 ML VIAL ONE (11:54)
[2020-10-05] MEDS ORDERED: Ondansetron PF 4 MG/2 ML Vial ONE (11:54)
[2020-10-05] MEDS ORDERED: Lidocaine 1% PF 5 ML VIAL ONE (11:54)
[2020-10-05] MEDS ORDERED: Rocuronium Bromide 10 MG/ML (10ML VIAL) ONE (11:54)
[2020-10-05] MEDS ORDERED: PHENYLEPHRINE-NS 100 MCG/ML 10 ML SYRINGE ONE (11:54)
[2020-10-05] MEDS ORDERED: PROPOFOL 200 MG/20 ML VIAL ONE (11:54)
[2020-10-05] MEDS ORDERED: ePHEDrine 50 MG/ML VIAL ONE (11:54)
[2020-10-05] MEDS ORDERED: Bupivacaine HCl 0.5%/Epinephrine 1:200,000/PF 30 ml Vial ONE (11:54)
[2020-10-05] MEDS ORDERED: Glycopyrrolate 0.2 MG/ML 5 ML SYRINGE ONE (11:54)
[2020-10-05] MEDS ORDERED: HYDROmorphone 2 MG/ML VIAL SLOW IVP PRN (13:34)
[2020-10-05] MEDS ORDERED: Promethazine HCl 25 MG/ML VIAL IM PRN (13:34)
[2020-10-05] MEDS ORDERED: Ondansetron HCl/PF 4 MG/2 ML Vial IVP PRN (13:34)
[2020-10-05] MEDS ORDERED: Morphine Sulfate 2 MG/ML SYRINGE SLOW IVP PRN (13:34)
[2020-10-05] MEDS ORDERED: Promethazine HCl 25 MG/ML VIAL SLOW IVP PRN (13:34)
[2020-10-05] MEDS ORDERED: HYDROmorphone 0.5 MG/0.5 ML SYRINGE ONE ×2 (15:02→17:23)
[2020-10-05] MEDS ORDERED: diphenhydrAMINE 50 MG/ML VIAL IVP PRN (19:15)
[2020-10-05] MEDS ORDERED: hydrALAZINE 20 MG/ML VIAL SLOW IVP PRN (19:15)
[2020-10-05] MEDS ORDERED: Ondansetron PF 4 MG/2 ML Vial IVP PRN (19:15)
[2020-10-05] MEDS ORDERED: Morphine 2 MG/ML VIAL SLOW IVP PRN (19:15)
[2020-10-05] MEDS ORDERED: HYDROcodone/Acetaminophen 5/325 mg Tablet PO PRN (19:15)
[2020-10-05] MEDS ORDERED: Zolpidem Tartrate 5 MG TAB PO PRN (19:15)
[2020-10-05 20:12] VITALS: BMI 25.9
[2020-10-05] MEDS: Citalopram 20 MG TAB PO SCH (21:07)
[2020-10-05] MEDS: Rosuvastatin 20 MG TAB PO SCH (21:07)
[2020-10-05] MEDS: Famotidine/PF 20 mg/2ml Vial SLOW IVP SCH (21:08)
[2020-10-05] MEDS: Docusate 100 MG CAP PO SCH (21:08)
[2020-10-05] MEDS: D5 1/2 NS w/20 mEq KCL 1,000 ML IV SCH (23:30)
[2020-10-06] MEDS ORDERED: HYDROcodone/Acetaminophen 10/325 mg Tablet PO PRN (00:04)
[2020-10-06] MEDS ORDERED: HYDROcodone/Acetaminophen 5/325 mg Tablet PO SCH (00:15)
[2020-10-06] MEDS: Morphine 2 MG/ML VIAL SLOW IVP PRN ×3 (00:21→23:17)
[2020-10-06] MEDS: D5 1/2 NS w/20 mEq KCL 1,000 ML IV SCH ×3 (06:38→23:19)
[2020-10-06] MEDS: Levothyroxine 150 MCG TAB PO SCH (06:42)
[2020-10-06 07:28] LABS: #Lymphocytes 1.4 thou/uL (1.20-3.40); #Monocytes 1.3 thou/uL (0.11-0.59); #Neutrophils 9.8 thou/uL (1.40-6.50); %Basophils 0.1 % (0.0-1.0); %Monocytes 10.2 % (0.0-10.0); %Neutrophils 78.6 % (42.0-75.0); Hemoglobin 12.8 g/dL (14.0-18.0); Mean Corpuscular HGB CONC 33.2 g/dL (32.0-36.0); Mean Corpuscular Hemoglobin 33.1 pg (27.0-31.0); Mean Corpuscular Volume 99.4 fL (78.0-98.0); Mean Platelet Volume 7.9 fL (7.4-10.4); Platelet Count 186 thou/uL (130-400); RBC Distribution Width 12.4 % (11.5-14.5); Red Blood Cell (RBC) Count 3.88 mill/uL (4.70-6.10); White Blood Cell (WBC) Count 12.4 thou/uL (4.8-10.8)
[2020-10-06 07:42] LABS: Anion Gap 13 mmol/L (10-20); BUN (Urea Nitrogen) 17 mg/dL (8.4-25.7); Calc. Creatinine Clearance 52 mL/min (70-130); Calcium 8.4 mg/dL (7.8-10.44); Carbon Dioxide 23 mmol/L (23-31); Chloride 108 mmol/L (98-107); Glucose 140 mg/dL (83-110); Potassium 4.6 mmol/L (3.5-5.1); Sodium 139 mmol/L (136-145)
[2020-10-06] MEDS: Famotidine/PF 20 mg/2ml Vial SLOW IVP SCH ×2 (08:00→21:30)
[2020-10-06] MEDS: HYDROcodone/Acetaminophen 10/325 mg Tablet PO PRN ×3 (08:04→17:41)
[2020-10-06] MEDS: Aspirin 81 mg Enteric Coated Tablet PO SCH (08:05)
[2020-10-06] MEDS: Ezetimibe 10 MG TAB PO SCH (08:05)
[2020-10-06] MEDS: Docusate 100 MG CAP PO SCH ×2 (08:05→21:29)
[2020-10-06] MEDS: Lidocaine 5% Patch TD SCH (09:46)
[2020-10-06] MEDS: Nicotine 21 MG PATCH TOP SCH (11:39)
[2020-10-06] MEDS ORDERED: Transdermal Patch Removal TOP SCH (21:00)
[2020-10-06] MEDS: Citalopram 20 MG TAB PO SCH (21:29)
[2020-10-06] MEDS: Rosuvastatin 20 MG TAB PO SCH (21:30)
[2020-10-07] MEDS: Levothyroxine 150 MCG TAB PO SCH (05:51)
[2020-10-07] MEDS: HYDROcodone/Acetaminophen 10/325 mg Tablet PO PRN ×2 (05:55→10:55)
[2020-10-07] MEDS: Famotidine/PF 20 mg/2ml Vial SLOW IVP SCH (08:49)
[2020-10-07] MEDS: Docusate 100 MG CAP PO SCH (08:49)
[2020-10-07] MEDS: Ezetimibe 10 MG TAB PO SCH (08:49)
[2020-10-07] MEDS: Lidocaine 5% Patch TD SCH ×2 (08:49→08:56)
[2020-10-07] MEDS: Aspirin 81 mg Enteric Coated Tablet PO SCH (08:49)
[2020-10-07] MEDS ORDERED: Lidocaine 5% Patch TD SCH (09:00)
[2020-10-07 11:36] VITALS: BP 92/56; TEMP 98.5
[2020-10-07] MEDS: Nicotine 21 MG PATCH TOP SCH (11:41)
[2020-10-07] MEDS: D5 1/2 NS w/20 mEq KCL 1,000 ML IV SCH (11:46)
== END 2020-10-07 15:50 | disposition home or self-care (01) | DRG 657 ==
LOC: SURG A 10-05 07:44 → EDSTATUS 10-05 17:00 → SJJU 10-05 19:32
PROVIDERS: ADMIT Urology; ATTEND Urology
PROC: 0TT10ZZ Resection of Left Kidney, Open Approach (ICD-10-PCS; principal; 2020-10-05)
PROC: 0TB70ZZ Excision of Left Ureter, Open Approach (ICD-10-PCS; 2020-10-05)
PROC: 0TP98DZ Removal of Intraluminal Device from Ureter, Via Natural or Artificial Opening Endoscopic (ICD-10-PCS; 2020-10-05)
DX: C65.2 Malignant neoplasm of left renal pelvis (principal); C66.2 Malignant neoplasm of left ureter; Z20.822 Contact with and (suspected) exposure to COVID-19; I10 Essential (primary) hypertension; E78.5 Hyperlipidemia, unspecified; E03.9 Hypothyroidism, unspecified; M19.90 Unspecified osteoarthritis, unspecified site; Z88.0 Allergy status to penicillin; Z95.1 Presence of aortocoronary bypass graft; Z79.82 Long term (current) use of aspirin; Z79.890 Hormone replacement therapy; Z79.899 Other long term (current) drug therapy
CPT/HCPCS: 36415; 80048; 85025; 86850; 86900; 86901; 88307; J0690; J1100; J1170; J2250; J2270; J2370; J2405; J2704; J3010; J3480; J3490; S0020; S0028

== ENCOUNTER 2020-10-08 16:55 | Emergency (ER) | payer MEDICARE, OTHER ==
[~2020-10-08 16:55] MED LIST: Iopamidol-370 76% 500 ML 1 ML ONE
[2020-10-08] MEDS ORDERED: Ondansetron PF 4 MG/2 ML Vial ONE (17:46)
[2020-10-08 17:52] LABS: #Eosinphils 0.3 thou/uL (0.0-0.7); #Lymphocytes 1.4 thou/uL (1.20-3.40); #Monocytes 0.9 thou/uL (0.11-0.59); #Neutrophils 11.4 thou/uL (1.40-6.50); %Basophils 0.1 % (0.0-1.0); %Eosinophils 1.8 % (0.0-10.0); %Lymphocytes 9.8 % (21.0-51.0); %Monocytes 6.7 % (0.0-10.0); %Neutrophils 81.7 % (42.0-75.0); Hemoglobin 11.9 g/dL (14.0-18.0); Mean Corpuscular Hemoglobin 33.2 pg (27.0-31.0); Mean Corpuscular Volume 97.6 fL (78.0-98.0); Mean Platelet Volume 7.9 fL (7.4-10.4); Platelet Count 176 thou/uL (130-400); RBC Distribution Width 12.5 % (11.5-14.5); Red Blood Cell (RBC) Count 3.59 mill/uL (4.70-6.10); White Blood Cell (WBC) Count 13.9 thou/uL (4.8-10.8)
[2020-10-08] MEDS ORDERED: Morphine 4 MG/ML VIAL ONE ×2 (18:05→20:41)
[2020-10-08 18:15] LABS: ALT (SGPT) 14 U/L (8-55); AST (SGOT) 27 U/L (5-34); Albumin 3.4 g/dL (3.4-4.8); Alkaline Phosphatase 74 U/L (40-110); Anion Gap 14 mmol/L (10-20); BUN (Urea Nitrogen) 18 mg/dL (8.4-25.7); Bilirubin, Total 0.9 mg/dL (0.2-1.2); Calc. Creatinine Clearance 0 mL/min (70-130); Calcium 8.9 mg/dL (7.8-10.44); Carbon Dioxide 20 mmol/L (23-31); Chloride 101 mmol/L (98-107); Globulin 3.2 g/dL (2.4-3.5); Glucose 96 mg/dL (83-110); Lipase 11 U/L (8-78); Potassium 4.4 mmol/L (3.5-5.1); Protein, Total 6.6 g/dL (5.8-8.1); Sodium 131 mmol/L (136-145)
[2020-10-08 19:05] LABS: Bacteria/HPF None Seen HPF (None Seen); Bilirubin Negative (Negative); Blood, Urine 3+ (Negative); Clarity Turbid (Clear); Glucose, Urine (Dipstick) Normal (Negative); Ketone, Urine 40 mg/dL (Negative); Leukocyte 500 Leu/uL (Negative); Nitrite Negative (Negative); Protein, Urine (Dipstick) 50 mg/dL (Neg-Trace); RBC/HPF Greater than 50 HPF (0-3); Squamous Epithelial None Seen HPF (0-3); Urobilinogen Normal mg/dL (Less than 2); WBC/HPF Greater than 50 HPF (0-3)
[2020-10-08] MEDS ORDERED: Cefepime 2 GM VIAL ONE (19:34)
[2020-10-08] MEDS ORDERED: Vancomycin 1 GM/200 ML BAG ONE (20:34)
== END 2020-10-08 21:16 | disposition home or self-care (01) ==
LOC: ERS 16:55
DX: N39.0 Urinary tract infection, site not specified (principal); R10.13 Epigastric pain; E78.00 Pure hypercholesterolemia, unspecified; E03.9 Hypothyroidism, unspecified; I25.10 Atherosclerotic heart disease of native coronary artery without angina pectoris; E78.5 Hyperlipidemia, unspecified; I12.9 Hypertensive chronic kidney disease with stage 1 through stage 4 chronic kidney disease, or unspecified chronic kidney disease; N18.9 Chronic kidney disease, unspecified; F17.210 Nicotine dependence, cigarettes, uncomplicated
CPT/HCPCS: 36415; 71045; 74177; 80053; 81003; 81015; 83605; 83690; 85025; 87040; 96365; 96375; 96376; J0692; J2270; J2405; J3370; Q9967

== ENCOUNTER 2021-03-11 10:17 | Outpatient (CLI) | payer MEDICARE ==
[2021-03-11] MEDS ORDERED: Iopamidol 370 76% 100 ML VIAL ONE (10:29)
== END 2021-03-11 10:18 | disposition home or self-care (01) ==
LOC: CT 10:17
PROVIDERS: ATTEND Urology
DX: C65.2 Malignant neoplasm of left renal pelvis (principal); I71.4 Abdominal aortic aneurysm, without rupture; I72.3 Aneurysm of iliac artery; Z90.5 Acquired absence of kidney; N28.1 Cyst of kidney, acquired; N32.89 Other specified disorders of bladder
CPT/HCPCS: 74177; 82565; Q9967

== ENCOUNTER 2021-07-21 08:45 | Outpatient (CLI) | payer MEDICARE, OTHER | END 2021-07-21 08:46 | disposition home or self-care (01) | LOC: CT 08:45 | PROVIDERS: ATTEND Internal Medicine Cardiovascular Disease | DX: I65.21 Occlusion and stenosis of right carotid artery (principal); I25.10 Atherosclerotic heart disease of native coronary artery without angina pectoris | CPT/HCPCS: 70498; 82565 ==

== ENCOUNTER 2021-08-14 09:19 | Inpatient (IN) | payer MEDICARE ==
[2021-08-14] MEDS ORDERED: Meclizine HCl 25 MG TAB ONE (09:55)
[2021-08-14 10:14] LABS: #Eosinphils 0.2 thou/uL (0.0-0.7); #Lymphocytes 2.2 thou/uL (1.20-3.40); #Monocytes 0.7 thou/uL (0.11-0.59); #Neutrophils 9.2 thou/uL (1.40-6.50); %Basophils 0.3 % (0.0-1.0); %Eosinophils 1.8 % (0.0-10.0); %Lymphocytes 17.7 % (21.0-51.0); %Monocytes 5.9 % (0.0-10.0); %Neutrophils 74.3 % (42.0-75.0); Hemoglobin 14.2 g/dL (14.0-18.0); Mean Corpuscular HGB CONC 33.5 g/dL (32.0-36.0); Mean Corpuscular Hemoglobin 32.3 pg (27.0-31.0); Mean Corpuscular Volume 96.4 fL (78.0-98.0); Mean Platelet Volume 8.2 fL (7.4-10.4); Platelet Count 178 thou/uL (130-400); RBC Distribution Width 13.4 % (11.5-14.5); Red Blood Cell (RBC) Count 4.38 mill/uL (4.70-6.10); White Blood Cell (WBC) Count 12.4 thou/uL (4.8-10.8)
[2021-08-14 10:37] LABS: ALT (SGPT) 17 U/L (8-55); AST (SGOT) 17 U/L (5-34); Albumin 3.7 g/dL (3.4-4.8); Alkaline Phosphatase 107 U/L (40-110); Anion Gap 11 mmol/L (10-20); BUN (Urea Nitrogen) 24 mg/dL (8.4-25.7); Bilirubin, Total 0.5 mg/dL (0.2-1.2); Calc. Creatinine Clearance 0 mL/min (70-130); Calcium 8.9 mg/dL (7.8-10.44); Carbon Dioxide 26 mmol/L (23-31); Chloride 107 mmol/L (98-107); Globulin 2.9 g/dL (2.4-3.5); Glucose 136 mg/dL (83-110); Potassium 4.4 mmol/L (3.5-5.1); Protein, Total 6.6 g/dL (5.8-8.1); Sodium 140 mmol/L (136-145)
[2021-08-14] MEDS ORDERED: Aspirin Chewable 81 MG TAB ONE ×2 (11:33→11:38)
[2021-08-14] MEDS ORDERED: Lorazepam 2 MG/ML VIAL ONE (11:33)
[2021-08-14 13:26] LABS: SARS-CoV-2 NAA Rapid Test Not Detected (NotDetected)
[2021-08-14 19:21] VITALS: BMI 28.2
[2021-08-14] MEDS ORDERED: Atorvastatin Calcium 40 MG TAB PO SCH (21:00)
[2021-08-14] MEDS: Rosuvastatin 20 MG TAB PO SCH (21:20)
[2021-08-15] MEDS ORDERED: Levothyroxine 150 MCG TAB PO SCH (06:00)
[2021-08-15 06:23] LABS: #Basophils 0.1 thou/uL (0.0-0.2); #Eosinphils 0.2 thou/uL (0.0-0.7); #Lymphocytes 2.8 thou/uL (1.20-3.40); #Monocytes 0.7 thou/uL (0.11-0.59); #Neutrophils 10.3 thou/uL (1.40-6.50); %Basophils 0.5 % (0.0-1.0); %Eosinophils 1.6 % (0.0-10.0); %Lymphocytes 19.8 % (21.0-51.0); %Monocytes 4.9 % (0.0-10.0); %Neutrophils 73.2 % (42.0-75.0); Mean Corpuscular HGB CONC 32.6 g/dL (32.0-36.0); Mean Corpuscular Hemoglobin 31.7 pg (27.0-31.0); Mean Corpuscular Volume 97.1 fL (78.0-98.0); Mean Platelet Volume 8.3 fL (7.4-10.4); Platelet Count 194 thou/uL (130-400); RBC Distribution Width 13.4 % (11.5-14.5); Red Blood Cell (RBC) Count 4.42 mill/uL (4.70-6.10); White Blood Cell (WBC) Count 14.1 thou/uL (4.8-10.8)
[2021-08-15 06:46] LABS: Anion Gap 11 mmol/L (10-20); BUN (Urea Nitrogen) 24 mg/dL (8.4-25.7); Calc. Creatinine Clearance 41 mL/min (70-130); Calcium 9.2 mg/dL (7.8-10.44); Carbon Dioxide 25 mmol/L (23-31); Cardiac Risk 4.8 (Less than 4.5); Chloride 107 mmol/L (98-107); Cholesterol 145 mg/dl (< 200 Desired); Glucose 153 mg/dL (83-110); HDL Cholesterol 30 mg/dL (>60 Neg Risk); LDL Cholesterol, Calculated 83 mg/dL; Potassium 4.3 mmol/L (3.5-5.1); Sodium 139 mmol/L (136-145); Triglycerides 159 mg/dL (Less than 150)
[2021-08-15] MEDS: Tamsulosin HCl 0.4 MG CAP PO SCH (09:31)
[2021-08-15] MEDS: Aspirin 81 mg Enteric Coated Tablet PO SCH (09:31)
[2021-08-15] MEDS: Enoxaparin Sodium 40 MG/0.4 ML SYRINGE SC SCH (09:31)
[2021-08-15] MEDS ORDERED: Meclizine HCl 12.5 MG TAB PO PRN (17:05)
[2021-08-15] MEDS ORDERED: Fluticasone Propionate Nasal Spray 16 gm Bottle NASAL SCH (17:30)
[2021-08-15] MEDS: Rosuvastatin 20 MG TAB PO SCH (22:14)
[2021-08-16] MEDS: Levothyroxine 175 MCG TAB PO SCH (05:32)
[2021-08-16] MEDS: Fluticasone Propionate Nasal Spray 16 gm Bottle NASAL SCH (09:22)
[2021-08-16] MEDS: Aspirin 81 mg Enteric Coated Tablet PO SCH (09:22)
[2021-08-16] MEDS: Enoxaparin Sodium 40 MG/0.4 ML SYRINGE SC SCH (09:22)
[2021-08-16] MEDS: Tamsulosin HCl 0.4 MG CAP PO SCH (09:23)
[2021-08-16] MEDS: Rosuvastatin 20 MG TAB PO SCH (20:12)
[2021-08-17] MEDS: Levothyroxine 175 MCG TAB PO SCH (06:07)
[2021-08-17] MEDS: Enoxaparin Sodium 40 MG/0.4 ML SYRINGE SC SCH (08:44)
[2021-08-17] MEDS: Aspirin 81 mg Enteric Coated Tablet PO SCH (08:44)
[2021-08-17] MEDS: Fluticasone Propionate Nasal Spray 16 gm Bottle NASAL SCH (08:45)
[2021-08-17] MEDS: Oxybutynin 5 MG TAB PO SCH (08:45)
[2021-08-17] MEDS: Tamsulosin HCl 0.4 MG CAP PO SCH (08:46)
[2021-08-17] MEDS ORDERED: Mag-Al 1200 mg/1200 mg/30 ML UDCUP PO PRN (17:51)
[2021-08-17] MEDS: Atorvastatin Calcium 40 MG TAB PO SCH (21:38)
[2021-08-18] MEDS: Levothyroxine 175 MCG TAB PO SCH (06:19)
[2021-08-18] MEDS: Oxybutynin 5 MG TAB PO SCH (08:25)
[2021-08-18] MEDS: Fluticasone Propionate Nasal Spray 16 gm Bottle NASAL SCH ×2 (08:25→15:52)
[2021-08-18] MEDS: Tamsulosin HCl 0.4 MG CAP PO SCH (08:25)
[2021-08-18] MEDS: Aspirin 81 mg Enteric Coated Tablet PO SCH (08:25)
[2021-08-18] MEDS: Enoxaparin Sodium 40 MG/0.4 ML SYRINGE SC SCH (08:25)
[2021-08-18] MEDS: Atorvastatin Calcium 40 MG TAB PO SCH (20:09)
[2021-08-19] MEDS: Levothyroxine 175 MCG TAB PO SCH (05:19)
[2021-08-19 08:43] LABS: #Eosinphils 0.2 thou/uL (0.0-0.7); #Lymphocytes 2.4 thou/uL (1.20-3.40); #Monocytes 0.9 thou/uL (0.11-0.59); #Neutrophils 7.4 thou/uL (1.40-6.50); %Basophils 0.4 % (0.0-1.0); %Eosinophils 2.2 % (0.0-10.0); %Lymphocytes 21.5 % (21.0-51.0); %Monocytes 8.6 % (0.0-10.0); %Neutrophils 67.3 % (42.0-75.0); Hemoglobin 14.6 g/dL (14.0-18.0); Mean Corpuscular HGB CONC 33.8 g/dL (32.0-36.0); Mean Corpuscular Hemoglobin 32.2 pg (27.0-31.0); Mean Corpuscular Volume 95.2 fL (78.0-98.0); Mean Platelet Volume 8.1 fL (7.4-10.4); Platelet Count 190 thou/uL (130-400); RBC Distribution Width 13.2 % (11.5-14.5); Red Blood Cell (RBC) Count 4.52 mill/uL (4.70-6.10)
[2021-08-19 08:59] LABS: Anion Gap 13 mmol/L (10-20); BUN (Urea Nitrogen) 22 mg/dL (8.4-25.7); Calc. Creatinine Clearance 39 mL/min (70-130); Calcium 9.7 mg/dL (7.8-10.44); Carbon Dioxide 25 mmol/L (23-31); Chloride 102 mmol/L (98-107); Glucose 131 mg/dL (83-110); Potassium 3.8 mmol/L (3.5-5.1); Sodium 136 mmol/L (136-145)
[2021-08-19] MEDS: Enoxaparin Sodium 40 MG/0.4 ML SYRINGE SC SCH (09:08)
[2021-08-19] MEDS: Oxybutynin 5 MG TAB PO SCH (09:08)
[2021-08-19] MEDS: Tamsulosin HCl 0.4 MG CAP PO SCH (09:08)
[2021-08-19] MEDS: Aspirin 81 mg Enteric Coated Tablet PO SCH (09:08)
[2021-08-19] MEDS: Fluticasone Propionate Nasal Spray 16 gm Bottle NASAL SCH (09:09)
[2021-08-19 15:18] VITALS: BP 99/68; TEMP 98.2
== END 2021-08-19 18:35 | DRG 149 ==
LOC: ERS 09:19 → NEURO 12:48 → OBSVTOIN 08-16 14:55
PROVIDERS: ADMIT Internal Medicine; ATTEND Internal Medicine
DX: H81.10 Benign paroxysmal vertigo, unspecified ear (principal); Z20.822 Contact with and (suspected) exposure to COVID-19; I25.10 Atherosclerotic heart disease of native coronary artery without angina pectoris; E03.9 Hypothyroidism, unspecified; F17.210 Nicotine dependence, cigarettes, uncomplicated; Z90.49 Acquired absence of other specified parts of digestive tract; Z88.0 Allergy status to penicillin; Z79.890 Hormone replacement therapy; Z79.899 Other long term (current) drug therapy; Z79.82 Long term (current) use of aspirin; Z95.1 Presence of aortocoronary bypass graft; Z90.09 Acquired absence of other part of head and neck
CPT/HCPCS: 36415; 70450; 70551; 80048; 80053; 80061; 84439; 84443; 84484; 85025; 93005; 94760; 96374; J1650; J2060; U0002

== ENCOUNTER 2021-09-11 12:24 | Emergency (ER) | payer MEDICARE ==
[2021-09-11] MEDS ORDERED: Meclizine HCl 25 MG TAB ONE (12:54)
[2021-09-11 13:14] LABS: #Lymphocytes 1.2 thou/uL (1.20-3.40); #Monocytes 0.9 thou/uL (0.11-0.59); #Neutrophils 4.9 thou/uL (1.40-6.50); %Basophils 0.2 % (0.0-1.0); %Eosinophils 0.5 % (0.0-10.0); %Lymphocytes 16.9 % (21.0-51.0); %Monocytes 12.3 % (0.0-10.0); %Neutrophils 70.1 % (42.0-75.0); Hemoglobin 13.7 g/dL (14.0-18.0); Mean Corpuscular HGB CONC 34.2 g/dL (32.0-36.0); Mean Corpuscular Hemoglobin 33.2 pg (27.0-31.0); Mean Corpuscular Volume 97.2 fL (78.0-98.0); Mean Platelet Volume 7.8 fL (7.4-10.4); Platelet Count 145 thou/uL (130-400); RBC Distribution Width 13.9 % (11.5-14.5); Red Blood Cell (RBC) Count 4.12 mill/uL (4.70-6.10); White Blood Cell (WBC) Count 6.9 thou/uL (4.8-10.8)
[2021-09-11 13:40] LABS: ALT (SGPT) 20 U/L (8-55); AST (SGOT) 24 U/L (5-34); Albumin 3.6 g/dL (3.4-4.8); Alkaline Phosphatase 88 U/L (40-110); Anion Gap 11 mmol/L (10-20); BUN (Urea Nitrogen) 19 mg/dL (8.4-25.7); Bilirubin, Total 0.3 mg/dL (0.2-1.2); Calc. Creatinine Clearance 0 mL/min (70-130); Calcium 8.5 mg/dL (7.8-10.44); Carbon Dioxide 24 mmol/L (23-31); Chloride 107 mmol/L (98-107); Globulin 2.4 g/dL (2.4-3.5); Glucose 104 mg/dL (83-110); Potassium 4.6 mmol/L (3.5-5.1); Sodium 137 mmol/L (136-145)
== END 2021-09-11 17:29 | disposition home or self-care (01) ==
LOC: ERS 12:24
DX: R42 Dizziness and giddiness (principal); E03.9 Hypothyroidism, unspecified; I25.10 Atherosclerotic heart disease of native coronary artery without angina pectoris; F17.210 Nicotine dependence, cigarettes, uncomplicated; Z79.899 Other long term (current) drug therapy
CPT/HCPCS: 36415; 80053; 84484; 85025; 93005

== ENCOUNTER 2021-12-23 08:57 | Outpatient (CLI) | payer MEDICARE ==
[2021-12-23] MEDS ORDERED: Iopamidol 370 76% 100 ML VIAL ONE (11:10)
== END 2021-12-23 08:58 | disposition home or self-care (01) ==
LOC: CT 08:57
PROVIDERS: ATTEND Urology
DX: C66.2 Malignant neoplasm of left ureter (principal); Z90.5 Acquired absence of kidney; N28.1 Cyst of kidney, acquired; N32.89 Other specified disorders of bladder; I71.4 Abdominal aortic aneurysm, without rupture; K76.89 Other specified diseases of liver
CPT/HCPCS: 74178; 82565; Q9967

== ENCOUNTER 2022-03-09 10:51 | Inpatient (IN) | payer OTHER ==
[2022-03-09 12:00] LABS: #Eosinphils 0.1 thou/uL (0.0-0.7); #Lymphocytes 1.9 thou/uL (1.20-3.40); #Monocytes 0.9 thou/uL (0.11-0.59); #Neutrophils 11.5 thou/uL (1.40-6.50); %Basophils 0.3 % (0.0-1.0); %Eosinophils 0.4 % (0.0-10.0); %Lymphocytes 13.5 % (21.0-51.0); %Monocytes 6.1 % (0.0-10.0); %Neutrophils 79.7 % (42.0-75.0); Hemoglobin 12.1 g/dL (14.0-18.0); Mean Corpuscular HGB CONC 33.3 g/dL (32.0-36.0); Mean Corpuscular Hemoglobin 32.8 pg (27.0-31.0); Mean Corpuscular Volume 98.8 fL (78.0-98.0); Mean Platelet Volume 9.4 fL (7.4-10.4); Platelet Count 245 thou/uL (130-400); RBC Distribution Width 13.7 % (11.5-14.5); Red Blood Cell (RBC) Count 3.67 mill/uL (4.70-6.10); White Blood Cell (WBC) Count 14.4 thou/uL (4.8-10.8)
[2022-03-09 12:06] LABS: ALT (SGPT) 35 U/L (8-55); AST (SGOT) 80 U/L (5-34); Albumin 4.3 g/dL (3.4-4.8); Alkaline Phosphatase 65 U/L (40-110); Anion Gap 19 mmol/L (10-20); BUN (Urea Nitrogen) 82 mg/dL (8.4-25.7); Bilirubin, Total 0.7 mg/dL (0.2-1.2); CK (CPK) 2957 U/L (30-200); Calc. Creatinine Clearance 0 mL/min (70-130); Carbon Dioxide 19 mmol/L (23-31); Chloride 110 mmol/L (98-107); Estimated GFR 22; Globulin 4.1 g/dL (2.4-3.5); Glucose 161 mg/dL (83-110); Magnesium 2.3 mg/dL (1.6-2.6); Potassium 4.2 mmol/L (3.5-5.1); Protein, Total 8.4 g/dL (5.8-8.1); Sodium 144 mmol/L (136-145)
[2022-03-09] MEDS ORDERED: Vancomycin 1 GM/200 ML BAG ONE (13:04)
[2022-03-09 13:14] LABS: Bacteria/HPF 3+ HPF (None Seen); Bilirubin Negative (Negative); Blood, Urine 3+ (Negative); Clarity Clear (Clear); Glucose, Urine (Dipstick) Normal (Negative); Ketone, Urine Negative (Negative); Leukocyte 250 Leu/uL (Negative); Nitrite Negative (Negative); Protein, Urine (Dipstick) 30 mg/dL (Neg-Trace); Specific Gravity, Urine 1.027 (1.002-1.036); Squamous Epithelial 0-3 HPF (0-3); Urobilinogen Normal mg/dL (Less than 2)
[2022-03-09] MEDS ORDERED: Piperacillin/Tazobactam 4.5 GM in Sodium Chloride 0.9% 100 ML IVPB SCH (13:30)
[2022-03-09] MEDS ORDERED: Dextrose 50% Abboject 50 ML SYRINGE SLOW IVP PRN (13:34)
[2022-03-09] MEDS ORDERED: Dextrose 5% in Water 1,000 ML IV PRN (13:34)
[2022-03-09] MEDS ORDERED: HumaLOG 300 UNITS/3 ML VIAL SC PRN ×2 (13:34)
[2022-03-09] MEDS ORDERED: Acetaminophen 650 MG Suppository PR PRN (13:37)
[2022-03-09] MEDS ORDERED: Acetaminophen 325 MG TAB PO PRN (13:37)
[2022-03-09] MEDS ORDERED: Ondansetron PF 4 MG/2 ML Vial IVP PRN (13:37)
[2022-03-09] MEDS ORDERED: Senokot S 8.6-50 MG TAB PO PRN (13:37)
[2022-03-09] MEDS ORDERED: Ondansetron ODT 4 MG TAB PO PRN (13:37)
[2022-03-09] MEDS ORDERED: cefTRIAXone\\ROCEPHIN 1 GM VIAL ONE (14:04)
[2022-03-09 14:06] LABS: Magnesium 2.3 mg/dL (1.6-2.6)
[2022-03-09 15:36] LABS: Lactic Acid 3.5 mmol/L (0.5-2.2)
[2022-03-09 16:30] VITALS: BMI 22.4
[2022-03-09] MEDS ORDERED: Vancomycin Sliding Scale (Wt 71-99) FS SCH (16:45)
[2022-03-09] MEDS: Sodium Chloride 0.9% 1,000 ML IV SCH (16:58)
[2022-03-09 17:16] LABS: Troponin I 0.028 ng/mL (< 0.028)
[2022-03-09] MEDS ORDERED: Sodium Chloride 0.9% 500 ML IV SCH (17:45)
[2022-03-09] MEDS: Heparin 5,000 UNITS/ML VIAL SC SCH (20:47)
[2022-03-09] MEDS: Famotidine 20 MG TAB PO SCH (20:49)
[2022-03-09 22:26] LABS: Lactic Acid 2.2 mmol/L (0.5-2.2)
[2022-03-10] MEDS: Sodium Chloride 0.9% 1,000 ML IV SCH ×2 (01:15→11:47)
[2022-03-10 05:17] LABS: #Eosinphils 0.2 thou/uL (0.0-0.7); #Lymphocytes 2.4 thou/uL (1.20-3.40); #Monocytes 0.9 thou/uL (0.11-0.59); #Neutrophils 8.4 thou/uL (1.40-6.50); %Basophils 0.2 % (0.0-1.0); %Eosinophils 1.7 % (0.0-10.0); %Monocytes 7.4 % (0.0-10.0); %Neutrophils 70.8 % (42.0-75.0); Hemoglobin 9.6 g/dL (14.0-18.0); Mean Corpuscular HGB CONC 33.8 g/dL (32.0-36.0); Mean Corpuscular Hemoglobin 33.4 pg (27.0-31.0); Mean Corpuscular Volume 98.8 fL (78.0-98.0); Mean Platelet Volume 9.2 fL (7.4-10.4); Platelet Count 199 thou/uL (130-400); RBC Distribution Width 13.3 % (11.5-14.5); Red Blood Cell (RBC) Count 2.87 mill/uL (4.70-6.10); White Blood Cell (WBC) Count 11.8 thou/uL (4.8-10.8)
[2022-03-10 05:39] LABS: Anion Gap 12 mmol/L (10-20); BUN (Urea Nitrogen) 59 mg/dL (8.4-25.7); Calc. Creatinine Clearance 29 mL/min (70-130); Calcium 8.9 mg/dL (7.8-10.44); Carbon Dioxide 19 mmol/L (23-31); Chloride 115 mmol/L (98-107); Estimated GFR 35; Glucose 106 mg/dL (83-110); Potassium 3.9 mmol/L (3.5-5.1); Sodium 142 mmol/L (136-145)
[2022-03-10 06:20] LABS: SARS-CoV-2 NAA Rapid Test Not Detected (NotDetected)
[2022-03-10] MEDS: Heparin 5,000 UNITS/ML VIAL SC SCH ×2 (08:24→20:05)
[2022-03-10] MEDS: Lactated Ringer's 1,000 ML IV SCH (12:12)
[2022-03-10 12:19] LABS: Vancomycin, Trough 8.7 ug/mL
[2022-03-10 12:21] LABS: Iron Binding Capacity, Total 186 mcg/dL (261-462)
[2022-03-10 12:22] LABS: Iron 34 ug/dL (65-175)
[2022-03-10] MEDS ORDERED: Vancomycin 1 GM in Premix Bag 1 BAG IVPB SCH (13:00)
[2022-03-10] MEDS: cefTRIAXone\\ROCEPHIN 1 GM in Sodium Chloride 0.9% 100 ML IVPB SCH (14:42)
[2022-03-10] MEDS: Iron, Sodium Ferric Gluconate 250 MG in Sodium Chloride 0.9% 250 ML 250 ML IVPB SCH (18:20)
[2022-03-10] MEDS: Famotidine 20 MG TAB PO SCH (20:05)
[2022-03-11] MEDS: Lactated Ringer's 1,000 ML IV SCH (02:53)
[2022-03-11 05:15] LABS: #Eosinphils 0.3 thou/uL (0.0-0.7); #Lymphocytes 2.5 thou/uL (1.20-3.40); #Monocytes 0.9 thou/uL (0.11-0.59); #Neutrophils 7.8 thou/uL (1.40-6.50); %Basophils 0.1 % (0.0-1.0); %Eosinophils 2.8 % (0.0-10.0); %Lymphocytes 21.6 % (21.0-51.0); %Monocytes 7.7 % (0.0-10.0); %Neutrophils 67.8 % (42.0-75.0); Hemoglobin 9.1 g/dL (14.0-18.0); Mean Corpuscular HGB CONC 33.9 g/dL (32.0-36.0); Mean Corpuscular Hemoglobin 33.6 pg (27.0-31.0); Mean Corpuscular Volume 99.1 fL (78.0-98.0); Mean Platelet Volume 8.8 fL (7.4-10.4); Platelet Count 197 thou/uL (130-400); RBC Distribution Width 13.1 % (11.5-14.5); White Blood Cell (WBC) Count 11.6 thou/uL (4.8-10.8)
[2022-03-11 05:37] LABS: Anion Gap 15 mmol/L (10-20); BUN (Urea Nitrogen) 37 mg/dL (8.4-25.7); Calc. Creatinine Clearance 38 mL/min (70-130); Calcium 8.9 mg/dL (7.8-10.44); Carbon Dioxide 15 mmol/L (23-31); Chloride 112 mmol/L (98-107); Estimated GFR 47; Glucose 87 mg/dL (83-110); Potassium 3.7 mmol/L (3.5-5.1); Sodium 138 mmol/L (136-145)
[2022-03-11] MEDS: Iron, Sodium Ferric Gluconate 250 MG in Sodium Chloride 0.9% 250 ML 250 ML IVPB SCH ×2 (05:51→18:01)
[2022-03-11] MEDS: Cyanocobalamin (Vitamin B-12) 1,000 MCG TAB PO SCH (08:34)
[2022-03-11] MEDS: Heparin 5,000 UNITS/ML VIAL SC SCH ×2 (08:34→19:54)
[2022-03-11 12:49] LABS: Vancomycin, Random 11.5 ug/mL (See Comment)
[2022-03-11] MEDS: cefTRIAXone\\ROCEPHIN 1 GM in Sodium Chloride 0.9% 100 ML IVPB SCH (13:25)
[2022-03-11] MEDS: Famotidine 20 MG TAB PO SCH (19:54)
[2022-03-12] MEDS: Iron, Sodium Ferric Gluconate 250 MG in Sodium Chloride 0.9% 250 ML 250 ML IVPB SCH (04:55)
[2022-03-12 06:04] LABS: #Eosinphils 0.3 thou/uL (0.0-0.7); #Lymphocytes 2.2 thou/uL (1.20-3.40); #Monocytes 0.9 thou/uL (0.11-0.59); #Neutrophils 7.4 thou/uL (1.40-6.50); %Basophils 0.2 % (0.0-1.0); %Lymphocytes 20.2 % (21.0-51.0); %Monocytes 8.1 % (0.0-10.0); %Neutrophils 68.7 % (42.0-75.0); Hemoglobin 9.9 g/dL (14.0-18.0); Mean Corpuscular HGB CONC 35.4 g/dL (32.0-36.0); Mean Corpuscular Hemoglobin 34.7 pg (27.0-31.0); Mean Corpuscular Volume 97.9 fL (78.0-98.0); Mean Platelet Volume 9.3 fL (7.4-10.4); Platelet Count 210 thou/uL (130-400); RBC Distribution Width 12.9 % (11.5-14.5); Red Blood Cell (RBC) Count 2.87 mill/uL (4.70-6.10); White Blood Cell (WBC) Count 10.7 thou/uL (4.8-10.8)
[2022-03-12 06:32] LABS: Anion Gap 17 mmol/L (10-20); BUN (Urea Nitrogen) 27 mg/dL (8.4-25.7); Calc. Creatinine Clearance 39 mL/min (70-130); Calcium 9.3 mg/dL (7.8-10.44); Carbon Dioxide 15 mmol/L (23-31); Chloride 107 mmol/L (98-107); Estimated GFR 49; Glucose 86 mg/dL (83-110); Potassium 4.1 mmol/L (3.5-5.1); Sodium 135 mmol/L (136-145)
[2022-03-12] MEDS: Heparin 5,000 UNITS/ML VIAL SC SCH ×2 (08:42→21:05)
[2022-03-12] MEDS: Cyanocobalamin (Vitamin B-12) 1,000 MCG TAB PO SCH (08:42)
[2022-03-12] MEDS ORDERED: Vancomycin 1 GM in Premix Bag 1 BAG IVPB SCH (13:00)
[2022-03-12] MEDS: cefTRIAXone\\ROCEPHIN 1 GM in Sodium Chloride 0.9% 100 ML IVPB SCH (14:56)
[2022-03-12] MEDS: Famotidine 20 MG TAB PO SCH (21:05)
[2022-03-13 08:44] VITALS: BP 118/77; TEMP 99.1
[2022-03-13] MEDS: Heparin 5,000 UNITS/ML VIAL SC SCH (09:25)
[2022-03-13] MEDS: Cyanocobalamin (Vitamin B-12) 1,000 MCG TAB PO SCH (09:25)
[2022-03-13] MEDS: cefTRIAXone\\ROCEPHIN 1 GM in Sodium Chloride 0.9% 100 ML IVPB SCH (13:52)
== END 2022-03-13 19:22 | DRG 871 ==
LOC: ERS 10:51 → MSONC 13:21 → OBSVTOIN 23:07
PROVIDERS: ADMIT Hospitalist; ATTEND Hospitalist
DX: A41.9 Sepsis, unspecified organism (principal); U07.1 COVID-19; N39.0 Urinary tract infection, site not specified; N17.9 Acute kidney failure, unspecified; E87.0 Hyperosmolality and hypernatremia; M62.82 Rhabdomyolysis; E87.2 Acidosis; Z20.822 Contact with and (suspected) exposure to COVID-19; E11.22 Type 2 diabetes mellitus with diabetic chronic kidney disease; I12.9 Hypertensive chronic kidney disease with stage 1 through stage 4 chronic kidney disease, or unspecified chronic kidney disease; N18.30 Chronic kidney disease, stage 3 unspecified; E11.51 Type 2 diabetes mellitus with diabetic peripheral angiopathy without gangrene; F03.90 Unspecified dementia, unspecified severity, without behavioral disturbance, psychotic disturbance, mood disturbance, and anxiety; F32.A Depression, unspecified; F41.9 Anxiety disorder, unspecified; E86.0 Dehydration; D64.9 Anemia, unspecified; Z95.1 Presence of aortocoronary bypass graft; Z88.0 Allergy status to penicillin; Z79.899 Other long term (current) drug therapy; Z79.890 Hormone replacement therapy; Z90.09 Acquired absence of other part of head and neck; Z99.3 Dependence on wheelchair; Z86.16 Personal history of COVID-19; Z79.82 Long term (current) use of aspirin; Z79.84 Long term (current) use of oral hypoglycemic drugs; E03.9 Hypothyroidism, unspecified
CPT/HCPCS: 36415; 36416; 51701; 70450; 71045; 72170; 80048; 80053; 80202; 81003; 81015; 82550; 82728; 83540; 83550; 83605; 83735; 84443; 84484; 85025; 86140; 87040; 87086; 93005; 93010; 96361; 96365; 96367; G0378; J0696; J1644; J2543; J2916; J3370; J3490; J7030; J7050; J7120; U0002; U0003; U0005